=== PATIENT | male | born 1985 | race Caucasian/White ===

== ENCOUNTER 2020-01-14 20:56 | Observation (INO) | payer BC ==
--- NOTE | 2020-01-14 21:20 | EDM.PDOC ---
ED HPI GENERAL MEDICAL PROBLEM - General Chief Complaint: Chest Pain Stated Complaint: CHEST PAIN Time Seen by Provider: 01/14/20 21:15 Source of Information: Reports: Patient History Limitations: Reports: No Limitations - History of Present Illness INITIAL COMMENTS - FREE TEXT/NARRATIVE: 34-year-old male presents to the emergency room with a chief complaint of chest pain. Patient states he had right-sided chest pain and pain into his neck and his right arm. Patient states the pain lasted over an hour with numbness in his arm. Patient denies smoking history. Has a family history of heart disease early both grandparents Onset: Today Duration: Hour(s):, Intermittent Location: Reports: Chest, Lower Extremity, Right, Radiates to (neck) Quality: Reports: Ache Severity: Moderate Improves with: Reports: None Worsens with: Reports: None Associated Symptoms: Reports: Chest Pain Chest Pain Score (Numeric/FACES): 6 - Related Data Allergies Allergy/AdvReac Type Severity Reaction Status Date / Time No Known Allergies Allergy Verified 01/14/20 21:16 Home Meds: Home Meds predniSONE 5 mg PO DAILY 01/14/20 [History] Social & Family History - Family History Cardiac: Reports: Angina (Her father has had early MIs and heart disease), [place] ED ROS GENERAL - Review of Systems Review Of Systems: See Below Constitutional: Reports: No Symptoms HEENT: Reports: No Symptoms Respiratory: Reports: No Symptoms Cardiovascular: Reports: No Symptoms Endocrine: Reports: No Symptoms GI/Abdominal: Reports: No Symptoms : Reports: No Symptoms Musculoskeletal: Reports: No Symptoms Skin: Reports: No Symptoms Neurological: Reports: No Symptoms Psychiatric: Reports: No Symptoms Hematologic/Lymphatic: Reports: No Symptoms Immunologic: Reports: No Symptoms ED EXAM, GENERAL - Physical Exam Exam: See Below Exam Limited By: No Limitations General Appearance: Alert, WD/WN, Anxious Eye Exam: Bilateral Eye: Normal Fundi, Normal Inspection Ears: Normal External Exam, Normal Canal, Hearing Grossly Normal, Normal TMs Ear Exam: Bilateral Ear: Auricle Normal, Canal Normal Nose: Normal Inspection, Normal Mucosa Throat/Mouth: Normal Inspection, Normal Lips, Normal Teeth Head: Atraumatic, Normocephalic Neck: Normal Inspection, Supple, Non-Tender Respiratory/Chest: No Respiratory Distress, Lungs Clear, Normal Breath Sounds, No Accessory Muscle Use, Chest Non-Tender Cardiovascular: Normal Peripheral Pulses, Regular Rate, Rhythm, No Edema, No JVD , No Murmur, No Rub GI/Abdominal: Normal Bowel Sounds, Soft, Non-Tender, No Distention, No Abnormal Bruit (Male) Exam: Deferred Rectal (Males) Exam: Deferred Back Exam: Normal Inspection, Full Range of Motion Extremities: Normal Inspection, Normal Range of Motion, Non-Tender, No Pedal Edema, Normal Capillary Refill Neurological: Alert, Oriented, CN II-XII Intact, Normal Cognition Psychiatric: Normal Affect, Normal Mood Skin Exam: Warm, Dry, Intact EKG INTERPRETATION EKG Date: 01/14/20 Time: 21:23 Rhythm: NSR [place]: Normal QRS: Normal ST-T: Normal QT: Normal Comparison: NA - No Prior EKG Course - Vital Signs Text/Narrative:: 34-year-old gentleman with chest pain patient has a normal cardiac work-up initially still having minimal chest pain was given aspirin. Patient's EKG is normal. 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 Patient has a strong family history of heart disease both his grandfathers had MIs in their 30s. Last Recorded V/S: Last Vital Signs Temp 97.3 F 01/14/20 21:15 Pulse 65 01/14/20 21:15 Resp 18 01/14/20 21:15 BP 150/101 H 01/14/20 21:25 Pulse Ox 98 01/14/20 21:15 - Orders/Labs/Meds Labs: Laboratory Tests 01/14/20 01/14/20 01/14/20 Range/Units 21:00 21:00 21:00 WBC 6.52 (4.0-11.0) K/uL RBC 5.65 (4.50-5.90) M/uL Hgb 16.7 (13.0-17.0) g/dL Hct 48.9 (38.0-50.0) % MCV 86.5 (80.0-98.0) fL MCH 29.6 (27.0-32.0) pg MCHC 34.2 (31.0-37.0) g/dL RDW Std Deviation 39.9 (28.0-62.0) fl RDW Coeff of Moises 13 (11.0-15.0) % Plt Count 218 (150-400) K/uL MPV 10.00 (7.40-12.00) fL Neut % (Auto) 45.2 L (48.0-80.0) % Lymph % (Auto) 39.4 (16.0-40.0) % [place] % (Auto) 13.0 (0.0-15.0) % Eos % (Auto) 2.1 (0.0-7.0) % Baso % (Auto) 0.3 (0.0-1.5) % Neut # (Auto) 2.9 (1.4-5.7) K/uL Lymph # (Auto) 2.6 H (0.6-2.4) K/uL [place] # (Auto) 0.9 H (0.0-0.8) K/uL Eos # (Auto) 0.1 (0.0-0.7) K/uL Baso # (Auto) 0.0 (0.0-0.1) K/uL Nucleated RBC % 0.0 /100WBC Nucleated RBCs # 0 K/uL INR 1.07 Sodium 139 (136-148) mmol/L Potassium 3.5 (3.5-5.1) mmol/L Chloride 101 (98-107) mmol/L Carbon Dioxide 28.8 (21.0-32.0) mmol/L BUN 13 (7.0-18.0) mg/dL Creatinine 1.1 (0.8-1.3) mg/dL Est Cr Clr Drug Dosing 127.77 mL/min Estimated GFR (MDRD) > 60.0 ml/min Glucose 99 (74-106) mg/dL Calcium 8.7 (8.5-10.1) mg/dL Total Bilirubin 0.9 (0.2-1.0) mg/dL AST 19 (15-37) IU/L ALT 34 (14-63) IU/L Alkaline Phosphatase 87 (46-116) U/L Troponin I < 0.050 (0.000-0.056) ng/mL Total Protein 7.9 (6.4-8.2) g/dL Albumin 4.2 (3.4-5.0) g/dL Globulin 3.7 (2.6-4.0) g/dL Albumin/Globulin Ratio 1.1 (0.9-1.6) Meds: Medications Discontinued Medications Generic Name Dose Route Start Last Admin Trade Name Justinq PRN Reason Stop Dose Admin Aspirin 324 mg 01/14/20 21:24 01/14/20 21:30 Aspirin PO 01/14/20 21:25 324 mg ONETIME ONE Administration Sodium Chloride 1,000 mls @ 1,000 mls/hr 01/14/20 21:24 01/14/20 21:31 Normal Saline IV 01/14/20 22:23 1,000 mls/hr .Bolus ONE Administration Departure - Departure Time of Disposition: 22:27 Disposition: Refer to Observation Condition: Good Clinical Impression: Atypical chest pain Referrals: PCP,None [Primary Care Provider] - Forms: ED Department Discharge Sepsis Event Note - Focused Exam Vital Signs: Vital Signs Temp Pulse Resp BP Pulse Ox 01/14/20 21:25 150/101 H 01/14/20 21:24 151/104 H 01/14/20 21:15 97.3 F 65 18 163/113 H 98 Date Exam was Performed: 01/14/20 Time Exam was Performed: 22:26
[2020-01-14] MEDS ORDERED: Sodium Chloride 0.9% 1,000 ML IV ONE (21:24)
[2020-01-14] MEDS ORDERED: Aspirin 81 MG Tab.Chew PO ONE (21:24)
[2020-01-14 21:41] LABS: BLOOD UREA NITROGEN,BUN 13 mg/dL (7.0-18.0); CARBON DIOXIDE,CO2 28.8 mmol/L (21.0-32.0); CHLORIDE,CL 101 mmol/L (98-107); GLUCOSE RANDOM 99 mg/dL (74-106); POTASSIUM,K 3.5 mmol/L (3.5-5.1); SODIUM,NA 139 mmol/L (136-148)
--- NOTE | 2020-01-14 21:57 | CR ---
Chest: Portable view of the chest was obtained. Comparison: No prior chest imaging is available. Heart size and mediastinum are normal. Lungs are clear with no acute parenchymal change. Bony structures are unremarkable as seen. Impression: 1. Nothing acute is appreciated on portable chest x-ray. Diagnostic code #1 This report was dictated in MDT
--- NOTE | 2020-01-14 23:49 | PCM.HP.2 ---
H&P History of Present Illness - General Date of Service: 01/14/20 Admit Problem/Dx: Admission Diagnosis/Problem Admission Diagnosis/Problem Chest pain - History of Present Illness Initial Comments - Free Text/Narative: 34 yo male with pmh of Rheumatoid arthritis who presents to the ED with a complaint of chest pain. The pain started shortly before arriving in the ED. He described the pain as pressure radiating to the neck and left arm. He denied any fevers, cough or shortness of breath. The pain has improved since arriving to the medical floor. Chest Pain Score (Numeric/FACES): 2 - Related Data Allergies/Adverse Reactions: Allergies Allergy/AdvReac Type Severity Reaction Status Date / Time No Known Allergies Allergy Verified 01/14/20 23:46 Home Medications: Home Meds predniSONE 5 mg PO DAILY 01/14/20 [History] Past Medical History HEENT History: Reports: None Cardiovascular History: Reports: None Respiratory History: Reports: None Genitourinary History: Reports: None Musculoskeletal History: Reports: RA Neurological History: Reports: None Psychiatric History: Reports: None Endocrine/Metabolic History: Reports: None Hematologic History: Reports: None Immunologic History: Reports: None Oncologic (Cancer) History: Reports: None Dermatologic History: Reports: None - Infectious Disease History Infectious Disease History: Reports: None - Past Surgical History Head Surgeries/Procedures: Reports: None GI Surgical History: Reports: Hernia, Inguinal Male Surgical History: Reports: None Social & Family History - Family History Cardiac: Reports: Angina (Her father has had early MIs and heart disease), [place] Other Neurological Family History: stroke Endocrine/Metabolic: Reports: Diabetes, type II - Tobacco Use Smoking Status *Q: Former Smoker Used Tobacco, but Quit: No Month/Year Tobacco Last Used: 08/04/19 - Caffeine Use Caffeine Use: Reports: None - Recreational Drug Use Recreational Drug Use: No H&P Review of Systems - Review of Systems: Review Of Systems: Comprehensive ROS is negative, except as noted in HPI. Exam - Exam Exam: See Below - Vital Signs Vital Signs: Last Vital Signs Temp 36.6 C 01/14/20 23:46 Pulse 62 01/14/20 23:46 Resp 17 01/14/20 23:46 BP 141/89 H 01/14/20 23:46 Pulse Ox 95 01/14/20 23:46 Weight: 115.666 kg - Exam General: Alert, Oriented HEENT: Mucosa Moist & [place] Neck: Supple Lungs: Clear to Auscultation, Normal Respiratory Effort Cardiovascular: Regular Rate, Regular Rhythm GI/Abdominal Exam: Normal Bowel Sounds, Soft, Non-Tender Extremities: Non-Tender, No Pedal Edema Skin: Warm, Dry, Intact - Patient Data Lab Results Last 24 hrs: Laboratory Results - last 24 hr 01/14/20 01/14/20 01/14/20 Range/Units 21:00 21:00 21:00 WBC 6.52 (4.0-11.0) K/uL RBC 5.65 (4.50-5.90) M/uL Hgb 16.7 (13.0-17.0) g/dL Hct 48.9 (38.0-50.0) % MCV 86.5 (80.0-98.0) fL MCH 29.6 (27.0-32.0) pg MCHC 34.2 (31.0-37.0) g/dL RDW Std Deviation 39.9 (28.0-62.0) fl RDW Coeff of Moises 13 (11.0-15.0) % Plt Count 218 (150-400) K/uL MPV 10.00 (7.40-12.00) fL Neut % (Auto) 45.2 L (48.0-80.0) % Lymph % (Auto) 39.4 (16.0-40.0) % [place] % (Auto) 13.0 (0.0-15.0) % Eos % (Auto) 2.1 (0.0-7.0) % Baso % (Auto) 0.3 (0.0-1.5) % Neut # (Auto) 2.9 (1.4-5.7) K/uL Lymph # (Auto) 2.6 H (0.6-2.4) K/uL [place] # (Auto) 0.9 H (0.0-0.8) K/uL Eos # (Auto) 0.1 (0.0-0.7) K/uL Baso # (Auto) 0.0 (0.0-0.1) K/uL Nucleated RBC % 0.0 /100WBC Nucleated RBCs # 0 K/uL INR 1.07 Sodium 139 (136-148) mmol/L Potassium 3.5 (3.5-5.1) mmol/L Chloride 101 (98-107) mmol/L Carbon Dioxide 28.8 (21.0-32.0) mmol/L BUN 13 (7.0-18.0) mg/dL Creatinine 1.1 (0.8-1.3) mg/dL Est Cr Clr Drug Dosing 127.77 mL/min Estimated GFR (MDRD) > 60.0 ml/min Glucose 99 (74-106) mg/dL Calcium 8.7 (8.5-10.1) mg/dL Total Bilirubin 0.9 (0.2-1.0) mg/dL AST 19 (15-37) IU/L ALT 34 (14-63) IU/L Alkaline Phosphatase 87 (46-116) U/L Troponin I < 0.050 (0.000-0.056) ng/mL Total Protein 7.9 (6.4-8.2) g/dL Albumin 4.2 (3.4-5.0) g/dL Globulin 3.7 (2.6-4.0) g/dL Albumin/Globulin Ratio 1.1 (0.9-1.6) Result Diagrams: 01/14/20 21:00 01/14/20 21:00 Sepsis Event Note - Evaluation Sepsis Screening Result: No Definite Risk - Focused Exam Vital Signs: Vital Signs Temp Pulse Resp BP Pulse Ox 01/14/20 23:46 36.6 C 62 17 141/89 H 95 01/14/20 23:14 67 14 144/97 H 94 L 01/14/20 22:23 62 138/91 H 95 01/14/20 21:53 70 141/93 H 91 L 01/14/20 21:25 150/101 H 01/14/20 21:24 151/104 H 01/14/20 21:23 150/101 H 01/14/20 21:15 36.3 C 65 18 163/113 H 98 Date Exam was Performed: 01/15/20 Time Exam was Performed: 00:41 Problem List Initiated/Reviewed/Updated: Yes Orders Last 24hrs: Active Orders 24 hr Category Date Time Status Admission Status [Patient Status] [ADT] Stat ADT 01/14/20 22:29 Active Telemetry Monitoring [Cardiac Monitoring] [RC] Q8H Care 01/14/20 22:35 Active
--- NOTE | 2020-01-15 07:56 | PCM.DCSUM1 ---
Discharge Summary - Hospital Course HPI Initial Comments: Admission Date: 01/14/20 Discharge Date: 01/15/20 Admission Diagnosis: 1. Chest pain 2. RA Discharge Diagnosis: 1. Chest pain-resolved 2. RA Procedures: None Consults: None Hospital Course: The patient is a 34 year old male with recently diagnosed RA who presented to the ER with upper chest, right arm pain and neck pain. In the ER, work up revealed no leukocytosis, anemia, electrolyte abnormality. EKG showed NSR with negative troponin. CXR showed no acute cardiopulmonary process. In the ER, he was given aspirin and 1 L bolus. He was admitted to the medical floor for observation. His troponins were trended and negative x 3. He was monitored on telemetry without any significant events. He was continued on his home meds for RA. By day of discharge, symptoms had resolved and he was requesting discharge. Disposition: Home Discharge Condition: vitals stable, tolerating oral diet, ambulating without difficulty, symptom improvement Discharge Instructions: regular diet as tolerated, activity as tolerated, take medications as prescribed. Symptoms to report to physician include fever/chills , chest pain, shortness of breath, abdominal pain, erythema, drainage/discharge , or not improving as expected. Discharge Medications: Prednisone 5 mg po daily Follow-up: 1. PCP- Dr. Strange 2. Outpatient stress test - Discharge Data Discharge Date: 01/15/20 Discharge Disposition: Home, Self-Care 01 Condition: Good - Referral to Home Health Primary Care Physician: PCP None - Discharge Plan Home Medications: Home Meds predniSONE 5 mg PO DAILY 01/14/20 [History] Patient Handouts: Nonspecific Chest Pain, Adult, [id number] Referrals: [facility] [Outside] - 01/21/20 1:00 pm Fortunato Strange MD [Ordering Only Provider] - (Arrive 15 minutes early with a photo ID and insurance card. If you are not early, they will not see you. ) - Discharge Summary/Plan Comment DC Time >30 min.: No - Patient Data Vitals - Most Recent: Last Vital Signs Temp 98.4 F 01/15/20 07:46 Pulse 72 01/15/20 07:46 Resp 16 01/15/20 07:46 BP 130/79 01/15/20 07:46 Pulse Ox 97 05/13/20 07:46 Weight - Most Recent: 117.753 kg I&O - Last 24 hours: Intake & Output 01/14/20 01/15/20 01/15/20 22:59 06:59 14:59 Intake Total 500 Output Total 800 Balance -300 Lab Results - Last 24 hrs: Laboratory Results - last 24 hr 01/14/20 01/14/20 01/14/20 Range/Units 21:00 21:00 21:00 WBC 6.52 (4.0-11.0) K/uL RBC 5.65 (4.50-5.90) M/uL Hgb 16.7 (13.0-17.0) g/dL Hct 48.9 (38.0-50.0) % MCV 86.5 (80.0-98.0) fL MCH 29.6 (27.0-32.0) pg MCHC 34.2 (31.0-37.0) g/dL RDW Std Deviation 39.9 (28.0-62.0) fl RDW Coeff of Moises 13 (11.0-15.0) % Plt Count 218 (150-400) K/uL MPV 10.00 (7.40-12.00) fL Neut % (Auto) 45.2 L (48.0-80.0) % Lymph % (Auto) 39.4 (16.0-40.0) % [place] % (Auto) 13.0 (0.0-15.0) % Eos % (Auto) 2.1 (0.0-7.0) % Baso % (Auto) 0.3 (0.0-1.5) % Neut # (Auto) 2.9 (1.4-5.7) K/uL Lymph # (Auto) 2.6 H (0.6-2.4) K/uL [place] # (Auto) 0.9 H (0.0-0.8) K/uL Eos # (Auto) 0.1 (0.0-0.7) K/uL Baso # (Auto) 0.0 (0.0-0.1) K/uL Nucleated RBC % 0.0 /100WBC Nucleated RBCs # 0 K/uL INR 1.07 Sodium 139 (136-148) mmol/L Potassium 3.5 (3.5-5.1) mmol/L Chloride 101 (98-107) mmol/L Carbon Dioxide 28.8 (21.0-32.0) mmol/L BUN 13 (7.0-18.0) mg/dL Creatinine 1.1 (0.8-1.3) mg/dL Est Cr Clr Drug Dosing 127.77 mL/min Estimated GFR (MDRD) > 60.0 ml/min Glucose 99 (74-106) mg/dL Calcium 8.7 (8.5-10.1) mg/dL Total Bilirubin 0.9 (0.2-1.0) mg/dL AST 19 (15-37) IU/L ALT 34 (14-63) IU/L Alkaline Phosphatase 87 (46-116) U/L Troponin I < 0.050 (0.000-0.056) ng/mL Total Protein 7.9 (6.4-8.2) g/dL Albumin 4.2 (3.4-5.0) g/dL Globulin 3.7 (2.6-4.0) g/dL Albumin/Globulin Ratio 1.1 (0.9-1.6) 01/15/20 Range/Units 03:15 WBC (4.0-11.0) K/uL RBC (4.50-5.90) M/uL Hgb (13.0-17.0) g/dL Hct (38.0-50.0) % MCV (80.0-98.0) fL MCH (27.0-32.0) pg MCHC (31.0-37.0) g/dL RDW Std Deviation (28.0-62.0) fl RDW Coeff of Moises (11.0-15.0) % Plt Count (150-400) K/uL MPV (7.40-12.00) fL Neut % (Auto) (48.0-80.0) % Lymph % (Auto) (16.0-40.0) % [place] % (Auto) (0.0-15.0) % Eos % (Auto) (0.0-7.0) % Baso % (Auto) (0.0-1.5) % Neut # (Auto) (1.4-5.7) K/uL Lymph # (Auto) (0.6-2.4) K/uL [place] # (Auto) (0.0-0.8) K/uL Eos # (Auto) (0.0-0.7) K/uL Baso # (Auto) (0.0-0.1) K/uL Nucleated RBC % /100WBC Nucleated RBCs # K/uL INR Sodium (136-148) mmol/L Potassium (3.5-5.1) mmol/L Chloride (98-107) mmol/L Carbon Dioxide (21.0-32.0) mmol/L BUN (7.0-18.0) mg/dL Creatinine (0.8-1.3) mg/dL Est Cr Clr Drug Dosing mL/min Estimated GFR (MDRD) ml/min Glucose (74-106) mg/dL Calcium (8.5-10.1) mg/dL Total Bilirubin (0.2-1.0) mg/dL AST (15-37) IU/L ALT (14-63) IU/L Alkaline Phosphatase (46-116) U/L Troponin I < 0.050 (0.000-0.056) ng/mL Total Protein (6.4-8.2) g/dL Albumin (3.4-5.0) g/dL Globulin (2.6-4.0) g/dL Albumin/Globulin Ratio (0.9-1.6) Med Orders - Current: Current Medications Prednisone (Prednisone) 5 mg PO DAILY JESSIKA Discontinued Medications Aspirin (Aspirin) 324 mg PO ONETIME ONE Stop: 01/14/20 21:25 Last Admin: 01/14/20 21:30 Dose: 324 mg Sodium Chloride (Normal Saline) 1,000 mls @ 1,000 mls/hr IV .Bolus ONE Stop: 01/14/20 22:23 Last Admin: 01/14/20 21:31 Dose: 1,000 mls/hr
[2020-01-15] MEDS ORDERED: predniSONE 5 MG Tab PO SCH (09:00)
== END 2020-01-15 10:50 | disposition home or self-care (01) ==
LOC: MW.ED 20:56 → MW.MS 22:29
PROVIDERS: ADMIT Internal Medicine; ATTEND Internal Medicine
DX: R07.89 Other chest pain (principal); M06.9 Rheumatoid arthritis, unspecified; Z79.899 Other long term (current) drug therapy; Z87.891 Personal history of nicotine dependence
CPT/HCPCS: 36415; 71045; 80053; 84484; 85025; 85610; 93005; 99285; A9270; J7030; 99284; J7512